=== PATIENT | male | born 1965 | race African-American/Black ===

== ENCOUNTER 2023-03-31 14:56 | Emergency (ER) | payer MEDICAID ==
[~2023-03-31] VITALS: Ht 165.1 cm; Wt 59.0 kg
[2023-03-31 15:28] VITALS: O2SAT 100
[2023-03-31] MEDS ORDERED: CYCL5TAB MT (18:33)
[2023-03-31] MEDS ORDERED: TOPUD MT (18:33)
[2023-03-31] MEDS ORDERED: LIDO700A15 TP (18:33)
[2023-03-31 18:50] VITALS: BP 146/78; PULSE 74; RESP 16; TEMP 97.9
== END 2023-03-31 18:52 | disposition home or self-care (01) ==
LOC: ER 17:04
DX: S39.012A Strain of muscle, fascia and tendon of lower back, initial encounter (principal); S20.219A Contusion of unspecified front wall of thorax, initial encounter; V49.59XA Passenger injured in collision with other motor vehicles in traffic accident, initial encounter; Y93.89 Activity, other specified; Y92.89 Other specified places as the place of occurrence of the external cause; Y99.8 Other external cause status
CPT/HCPCS: 71045; 99283

== ENCOUNTER 2023-05-09 00:18 | Emergency (ER) | payer MEDICAID ==
[~2023-05-09] VITALS: Ht 167.6 cm; Wt 75.0 kg
[~2023-05-09 00:18] MED LIST: CYCL5TAB MT; LIDO700A15 TP; TOPUD MT
[2023-05-09 00:21] VITALS: TEMP 98.2; O2SAT 99
[2023-05-09] MEDS: HYDROCODONE/ACETAMINOPHEN 5/325MG TABLET PO NR (02:34)
[2023-05-09] MEDS: TETANUS, DIPHTHERIA, PERTUSSIS VAC/PF 0.5ML (>10YR OLD) IM ONE (02:45)
[2023-05-09] MEDS: LIDOCAINE HCL/PF 1% 10 MG/ML 5ML VIAL INFIL NR (03:19)
[2023-05-09] MEDS: BACITRACIN ZINC OINT UDPKT TOP NR (03:19)
[2023-05-09] MEDS ORDERED: NAPR-681 PO (03:28)
[2023-05-09 03:43] VITALS: BP 141/91; PULSE 70; RESP 16
== END 2023-05-09 03:44 | disposition home or self-care (01) ==
LOC: ER 00:18
DX: S01.01XA Laceration without foreign body of scalp, initial encounter (principal); M25.561 Pain in right knee; Y04.0XXA Assault by unarmed brawl or fight, initial encounter; Y93.89 Activity, other specified; Y92.89 Other specified places as the place of occurrence of the external cause; Y99.8 Other external cause status
CPT/HCPCS: 73562; 70450; 70486; 90715; 12002; 90471; 99285; J3490; Z7610 ×3

== ENCOUNTER 2023-05-22 21:04 | Emergency (ER) | payer MEDICAID ==
[~2023-05-22] VITALS: Ht 165.1 cm; Wt 71.0 kg
[~2023-05-22 21:04] MED LIST changes: +NAPR-681 PO
[2023-05-22 22:05] VITALS: O2SAT 100
[2023-05-22] MEDS ORDERED: CEPH500T MT (22:28)
[2023-05-22 22:52] VITALS: BP 162/96; PULSE 76; RESP 16; TEMP 98.6
== END 2023-05-22 22:40 | disposition home or self-care (01) ==
LOC: ER 21:04
DX: S01.01XD Laceration without foreign body of scalp, subsequent encounter (principal); L03.811 Cellulitis of head [any part, except face]; X58.XXXD Exposure to other specified factors, subsequent encounter
CPT/HCPCS: 99283; Z7610

== ENCOUNTER 2024-04-07 04:24 | Emergency (ER) | payer MEDICAID ==
[~2024-04-07] VITALS: Ht 165.1 cm; Wt 59.0 kg
[~2024-04-07 04:24] MED LIST changes: +CEPH500T MT; -CYCL5TAB MT; +CYCL5TAB3 MT
[2024-04-07 04:32] VITALS: O2SAT 100
[2024-04-07 04:51] VITALS: BP 185/96; PULSE 83; RESP 16; TEMP 36.9; O2SAT 100
[2024-04-07] MEDS: BALANCED SALT IRRIG SOLN 15ML IR ONE (06:15)
[2024-04-07] MEDS: FLUORESCEIN SODIUM 1MG/STRIP RIGHTEYE ONE (06:15)
[2024-04-07] MEDS: TETRACAINE 0.5% OPHTH DROPS 4ML RIGHTEYE ONE (06:15)
[2024-04-07] MEDS: KETOROLAC 30MG/ML VIAL IM ONE (06:47)
== END 2024-04-07 08:49 | disposition home or self-care (01) ==
LOC: ER 04:24
DX: H10.32 Unspecified acute conjunctivitis, left eye (principal); I10 Essential (primary) hypertension
CPT/HCPCS: 99283; 96372; J1885

== ENCOUNTER 2024-04-10 21:32 | Emergency (ER) | payer MEDICAID ==
[~2024-04-10] VITALS: Ht 167.6 cm; Wt 62.0 kg
[2024-04-10 21:34] VITALS: BP 157/83; PULSE 79; RESP 18; TEMP 36.8; O2SAT 99
[2024-04-10] MEDS ORDERED: IBUP-2029 MT (22:33)
[2024-04-10] MEDS: ACETAMINOPHEN 325MG TABLET PO ONE (22:36)
[2024-04-10] MEDS: KETOROLAC 30MG/ML VIAL IM ONE (22:36)
[2024-04-10] MEDS: CYCLOBENZAPRINE 10MG TABLET PO ONE (22:36)
== END 2024-04-10 23:01 | disposition home or self-care (01) ==
LOC: ER 21:32
DX: T14.8XXA Other injury of unspecified body region, initial encounter (principal); M54.50 Low back pain, unspecified; M54.6 Pain in thoracic spine; I10 Essential (primary) hypertension; Z79.899 Other long term (current) drug therapy; V89.2XXA Person injured in unspecified motor-vehicle accident, traffic, initial encounter; Y93.89 Activity, other specified; Y92.89 Other specified places as the place of occurrence of the external cause; Y99.8 Other external cause status
CPT/HCPCS: 99283; 96372; J1885

== ENCOUNTER 2024-07-21 16:05 | Emergency (ER) | payer MEDICAID ==
[~2024-07-21] VITALS: Ht 162.6 cm; Wt 61.0 kg
[~2024-07-21 16:05] MED LIST changes: +IBUP-2029 MT; +LIDO-53 TP; -LIDO700A15 TP
[2024-07-21 16:19] VITALS: O2SAT 100
[2024-07-21] MEDS ORDERED: IBUP-2029 MT (16:47)
[2024-07-21] MEDS ORDERED: AMOX1TAB16 MT (16:47)
[2024-07-21 17:09] VITALS: BP 130/75; PULSE 88; RESP 18; TEMP 37.3; O2SAT 100
== END 2024-07-21 17:09 | disposition home or self-care (01) ==
LOC: ER 16:05
DX: K04.7 Periapical abscess without sinus (principal); Z79.899 Other long term (current) drug therapy
CPT/HCPCS: 99283